=== PATIENT | male | born 1945 | race Two or more races ===

== ENCOUNTER 2021-03-09 11:44 | Emergency (ER) | payer MEDICARE, OTHER ==
[~2021-03-09] VITALS: Ht 175.3 cm; Wt 121.1 kg
[2021-03-09 12:49] LABS: Urine WBC None Seen /hpf (0 - 3)
[2021-03-09 13:04] LABS: Urine Bacteria NONE SEEN /hpf (None Seen); Urine Blood TRACE /uL (Negative); Urine Specific Gravity 1.017 (1.001-1.035)
[2021-03-09 14:10] LABS: Hematocrit 45.4 % (41.0-53.0); Hemoglobin 15.4 g/dL (13.5-17.5); Mean Corpuscular Hemoglobin 30.3 pg (28.0-32.0); Mean Corpuscular Hgb Conc. 33.8 g/dL (32.0-36.0); Mean Corpuscular Volume 89.5 fL (80.0-100.0); Red Blood Cells 5.08 10^6/uL (4.5-5.90); Red Cell Distribution Width 14.4 % (11.8-14.3); White Blood Cell 10.8 10^3/uL (4.4-10.8)
[2021-03-09 14:13] LABS: Basophils % (manual) 0 (0.0-2.0); Blast Cells 0; Metamyelocytes % 0; Myelocytes % 0; Promyelocytes % 0; Reactive Lymphocytes 0
[2021-03-09 14:28] LABS: Albumin 2.9 g/dL (3.4-5.0); Anion Gap 4 (5-15); Blood Urea Nitrogen 15 mg/dL (7-18); Calcium 8.8 mg/dL (8.5-10.1); Carbon Dioxide 28 mmol/L (21-32); Chloride 105 mmol/L (98-107); Glucose 91 mg/dL (74-106); Sodium 137 mmol/L (136-145)
[2021-03-09 14:35] LABS: Alanine Aminotransferase 28 U/L (16-61); Alkaline Phosphatase 88 U/L (45-117); Aspartate Aminotransferase 14 U/L (15-37); BUN/Creatinine Ratio 15.6; Band Neutrophils % (manual) 1; Bilirubin, Total 0.6 mg/dL (0.2-1.0); Eosinophils % (manual) 11 (0-7); GFR African American 98 mL/min; GFR Non-African American 81 mL/min; Lymphocytes % (manual) 14 (10.0-50.0); Monocytes % (manual) 7 (0-12); Total Protein 7.1 g/dL (6.4-8.2)
[2021-03-09] MEDS ORDERED: cefTRIAXone W LIDOCAINE 1 GM IM IM ONE (14:45)
[2021-03-09] MEDS ORDERED: cefTRIAXone SOD 1,000 MG VL ONE (16:27)
[2021-03-09 16:38] VITALS: BP 138/78
== END 2021-03-09 16:48 | disposition home or self-care (01) ==
LOC: ER 11:44
DX: N43.3 Hydrocele, unspecified (principal); I48.91 Unspecified atrial fibrillation; I10 Essential (primary) hypertension; Z95.0 Presence of cardiac pacemaker
CPT/HCPCS: 36415; 76870; 80053; 81001; 84484; 85007; 85027; 93005; 96372; 99285; J0696